=== PATIENT | female | born 1990 | race Caucasian/White ===

== ENCOUNTER 2016-07-02 23:08 | Emergency (ER) | payer SELFPAY ==
[~2016-07-02] VITALS: Ht 160 cm; Wt 159.7 kg
[~2016-07-02 23:08] MED LIST: ALBUTEROL SULF8.5 GM IH; CARAFATE100 MG/ML PO; CLARITIN10 M3 PO; DOXYCYCLINE HY100 MG PO; FLEXERIL10 MG PO; HYCODAN SYRUP480 ML PO; MOTRIN800 MG PO; NASONEX17 GM BOTH NARES; OMEPRAZOLE40 M1 PO; PEPCID COMPLET1 EACH PO; PHENERGAN-CODE120 ML PO; PREDNISONE20 MG PO; PRILOSEC40 MG PO; TUSSIN DM LIQU118 ML PO; TYLENOL EXTRA500 MG PO; VENTOLIN HFA18 GM IH; ZITHROMAX250 MG PO
[2016-07-02 23:16] VITALS: BP 128/88
[2016-07-02 23:56] LABS: ADD MIUA? NO; BILIRUBIN NEGATIVE; BLOOD NEGATIVE; COLOR YELLOW ((YELLOW)); GLUCOSE (STRIP) NEGATIVE; KETONES NEGATIVE; LEUKOCYTES NEGATIVE; NITRITE NEGATIVE; PROTEIN (STRIP) NEGATIVE; SPECIFIC GRAVITY 1.018 (1.000-1.030); UCUL ADDED? NO; UROBILINOGEN 0.2 MG/DL (0.2-1.0)
[2016-07-02 23:56] LABS: HEMATOCRIT 39.6 % (36.0-46.0); MCH 28.7 PG (29.0-34.0); MCHC 32.6 G/DL (30.0-36.0); MEAN PLAT.VOLUME 10.3 uM^3 (9.5-12.4); PLATELET COUNT 257 K/uL (156-360); RBC DIS.WIDTH-CV 13.8 % (11.8-14.6); RBC DIS.WIDTH-SD 43.6 % (39-53)
[2016-07-03 00:09] LABS: CHLORIDE 105 mEq/L (99-109); SODIUM 139 mEq/L (136-147)
[2016-07-03 00:11] LABS: GLUCOSE 110 mg/dL (70-99)
[2016-07-03 00:13] LABS: ANION GAP 9 MEQ/L (2-14); TOTAL BILIRUBIN 0.6 mg/dL (0.0-1.0)
[2016-07-03 00:15] LABS: ALKALINE PHOSPHATASE 75 IU/L (3-129); GFR ESTIMATE (CALCULATED) > 59 mL/min/
[2016-07-03 00:16] LABS: UREA NITROGEN (BUN) 8 mg/dL (9-23)
[2016-07-03 00:18] LABS: LIPASE 14 U/L (1.0-51.0)
[2016-07-03 00:25] LABS: QUANTITATIVE HCG < 4.0 MIU/ML
[2016-07-03] MEDS ORDERED: ZOFRAN ODT4 MG PO (02:43)
[2016-07-03] MEDS ORDERED: OMEPRAZOLE40 M1 PO (20:51)
== END 2016-07-03 03:16 | disposition home or self-care (01) ==
LOC: EME 23:08
DX: R11.2 Nausea with vomiting, unspecified (principal); R19.7 Diarrhea, unspecified; J45.909 Unspecified asthma, uncomplicated; F17.200 Nicotine dependence, unspecified, uncomplicated; Z88.0 Allergy status to penicillin; Z88.2 Allergy status to sulfonamides; Z91.040 Latex allergy status; Z91.013 Allergy to seafood
CPT/HCPCS: 80053; 81003; 83690; 84702; 85027; 99281; 99284

== ENCOUNTER 2016-07-03 20:06 | Emergency (ER) | payer SELFPAY ==
[~2016-07-03] VITALS: Ht 160 cm; Wt 157.5 kg
[~2016-07-03 20:06] MED LIST changes: +ZOFRAN ODT4 MG PO
[2016-07-03] MEDS ORDERED: OMEPRAZOLE40 M1 PO (20:51)
[2016-07-03 21:59] LABS: ADD MIUA? YES; BILIRUBIN NEGATIVE; BLOOD LARGE; COLOR YELLOW ((YELLOW)); GLUCOSE (STRIP) NEGATIVE; KETONES NEGATIVE; LEUKOCYTES NEGATIVE; NITRITE NEGATIVE; PROTEIN (STRIP) NEGATIVE; SPECIFIC GRAVITY 1.012 (1.000-1.030)
[2016-07-03 22:12] LABS: BACTERIA 1+; CASTS NONE SEEN /LPF; CRYSTALS NONE SEEN; EPITHELIAL CELLS 1+; MUCUS NONE SEEN; PATHOLOGICAL CAST NONE SEEN; SMALL ROUND CELL NONE SEEN; YEAST-LIKE CELL NONE SEEN
[2016-07-03 22:14] LABS: CHLORIDE 105 mEq/L (99-109); POTASSIUM 3.6 mEq/L (3.7-5.4); SODIUM 140 mEq/L (136-147)
[2016-07-03 22:15] LABS: GLUCOSE 100 mg/dL (70-99)
[2016-07-03 22:17] LABS: ANION GAP 10 MEQ/L (2-14)
[2016-07-03 22:19] LABS: GFR ESTIMATE (CALCULATED) > 59 mL/min/
[2016-07-03 22:20] LABS: UREA NITROGEN (BUN) 7 mg/dL (9-23)
[2016-07-04 00:13] VITALS: BP 121/67
== END 2016-07-04 00:14 | disposition home or self-care (01) ==
LOC: EME 20:06 → EXP 20:06
PROVIDERS: Physician Assistant
DX: R51 Headache (principal); G93.2 Benign intracranial hypertension; J45.909 Unspecified asthma, uncomplicated; K21.9 Gastro-esophageal reflux disease without esophagitis; F17.200 Nicotine dependence, unspecified, uncomplicated
CPT/HCPCS: 70450; 80048; 81003; 87502; 99281; 99285; J7030

== ENCOUNTER 2016-07-24 03:05 | Emergency (ER) | payer SELFPAY ==
[~2016-07-24] VITALS: Ht 160 cm; Wt 157.8 kg
[2016-07-24 04:20] LABS: CHLORIDE 107 mEq/L (99-109); SODIUM 142 mEq/L (136-147)
[2016-07-24 04:22] LABS: GLUCOSE 122 mg/dL (70-99)
[2016-07-24 04:24] LABS: ANION GAP 7 MEQ/L (2-14); MCHC 32.8 G/DL (30.0-36.0); MCV 88.7 FL (83-99); MEAN PLAT.VOLUME 10.3 uM^3 (9.5-12.4); PLATELET COUNT 302 K/uL (156-360); RBC DIS.WIDTH-CV 13.6 % (11.8-14.6); RBC DIS.WIDTH-SD 43.4 % (39-53); RED BLOOD COUNT 4.51 M/uL (3.80-5.20)
[2016-07-24 04:26] LABS: D-DIMER ELISA 0.29 mg/L FEU (< 0.57); GFR ESTIMATE (CALCULATED) > 59 mL/min/
[2016-07-24 04:27] LABS: UREA NITROGEN (BUN) 10 mg/dL (9-23)
[2016-07-24 04:53] VITALS: BP 122/84
== END 2016-07-24 04:54 | disposition home or self-care (01) ==
LOC: EME 03:05
PROVIDERS: Emergency Medicine
DX: M79.605 Pain in left leg (principal); M54.32 Sciatica, left side; J45.909 Unspecified asthma, uncomplicated; K21.9 Gastro-esophageal reflux disease without esophagitis; F17.200 Nicotine dependence, unspecified, uncomplicated
CPT/HCPCS: 80048; 85027; 85379; 93971; 99281; 99283

== ENCOUNTER 2016-07-28 06:45 | Emergency (ER) | payer SELFPAY ==
[~2016-07-28] VITALS: Ht 162.6 cm; Wt 150.0 kg
[2016-07-28] MEDS ORDERED: TYLENOL REGULA325 MG PO (07:52)
[2016-07-28 08:30] VITALS: BP 118/79
== END 2016-07-28 09:09 | disposition home or self-care (01) ==
LOC: EME 06:45
DX: S13.4XXA Sprain of ligaments of cervical spine, initial encounter (principal); W54.1XXA Struck by dog, initial encounter; W10.9XXA Fall (on) (from) unspecified stairs and steps, initial encounter; Z72.0 Tobacco use; Z88.2 Allergy status to sulfonamides; Z88.0 Allergy status to penicillin; Z91.013 Allergy to seafood; Z91.040 Latex allergy status; J45.909 Unspecified asthma, uncomplicated; K21.9 Gastro-esophageal reflux disease without esophagitis; F19.21 Other psychoactive substance dependence, in remission
CPT/HCPCS: 99281; 99284